=== PATIENT | female | born 1950 | race Caucasian/White ===

== ENCOUNTER 2016-05-28 18:15 | Emergency (ER) | payer BC ==
[2016-05-28 18:41] VITALS: PULSE 68; RESP 16; TEMP 98.4
[2016-05-28 19:56] LABS: % IMMATURE GRANULYOCYTES 0.3 % (0.0-1.1); ABSOLUTE IMMATURE GRANULOCYTES 0.02 10^3/uL (0.00-0.10); ADD DIFF? NO; ADD MORPH? NO; ADD SCAN? NO; ATYPICAL LYMPHOCYTE FLAG 0 (0-99); FRAGMENT RBC FLAG 0 (0-99); HEMATOCRIT 43.7 % (38.0-47.0); HEMOGLOBIN 13.7 g/dL (12.6-16.3); LEFT SHIFT FLG 0 (0-99); LIPEMIA HEMOLYSIS FLAG 80 (0-99); MEAN CELL HEMOGLOBIN 28.3 pg (27.9-34.1); MEAN CELL HEMOGLOBIN CONCENTR. 31.4 g/dL (32.4-36.7); MEAN CELL VOLUME 90.3 fL (81.5-99.8); MEAN PLATELET VOLUME 11.3 fL (8.7-11.7); PLATELET CLUMPS FLAG 0 (0-99); PLATELET COUNT 184 10^3/uL (150-400); RED BLOOD CELL COUNT 4.84 10^6/uL (4.18-5.33); RED CELL DISTRIBUTION WIDTH 13.2 % (11.5-15.2)
[2016-05-28 20:23] LABS: BILIRUBIN,TOTAL 0.3 mg/dL (0.1-1.4); CALCIUM 9.1 mg/dL (8.5-10.4); POTASSIUM 4.3 mEq/L (3.5-5.2); TOTAL PROTEIN 7.5 g/dL (6.3-8.2)
--- NOTE | 2016-05-28 20:51 | UCPHY ---
H & P Time Seen by Provider: 05/28/16 18:34 Patient Type: Established Smoking Status: Never smoked Constitutional: Initial Vital Signs Temperature (C) 36.9 C 05/28/16 18:37 Heart Rate 68 05/28/16 18:37 Respiratory Rate 16 05/28/16 18:37 Blood Pressure 139/80 H 05/28/16 18:37 O2 Sat (%) 95 05/28/16 18:37 O2 Delivery Mode Room Air Allergies/Adverse Reactions: naproxen Allergy (Severe, Verified 05/28/16 18:34) erythromycin base [Erythromycin Base] Allergy (Verified 05/28/16 18:34) Home Medications: Medication Instructions Recorded Omeprazole [Prilosec] 40 mg PO DAILY PRN 01/01/15 Apixaban [Eliquis] 5 mg PO BID #0 tab 09/09/15 Bisoprol/Hydrochlorothiazide [Ziac 1 each PO DAILY #0 tablet 09/09/15 5-6.25 mg Tablet] Medical Decision Making - Data Points Laboratory Results: Laboratory Results 05/28/16 19:53 05/28/16 19:53 05/28/16 05/28/16 19:53 19:53 WBC 7.68 10^3/uL 10^3/uL (3.80-9.50) RBC 4.84 10^6/uL 10^6/uL (4.18-5.33) Hgb 13.7 g/dL g/dL (12.6-16.3) Hct 43.7 % % (38.0-47.0) MCV 90.3 fL fL (81.5-99.8) MCH 28.3 pg pg (27.9-34.1) MCHC 31.4 g/dL L g/dL (32.4-36.7) RDW 13.2 % % (11.5-15.2) Plt Count 184 10^3/uL 10^3/uL (150-400) MPV 11.3 fL fL (8.7-11.7) Neut % (Auto) 59.3 % % (39.3-74.2) Lymph % (Auto) 27.9 % % (15.0-45.0) Tyrrell % (Auto) 10.3 % % (4.5-13.0) Eos % (Auto) 1.4 % % (0.6-7.6) Baso % (Auto) 0.8 % % (0.3-1.7) Nucleat RBC Rel Count 0.0 % % (0.0-0.2) Absolute Neuts (auto) 4.56 10^3/uL 10^3/uL (1.70-6.50) Absolute Lymphs (auto) 2.14 10^3/uL 10^3/uL (1.00-3.00) Absolute Monos (auto) 0.79 10^3/uL 10^3/uL (0.30-0.80) Absolute Eos (auto) 0.11 10^3/uL 10^3/uL (0.03-0.40) Absolute Basos (auto) 0.06 10^3/uL 10^3/uL (0.02-0.10) Absolute Nucleated RBC 0.00 10^3/uL 10^3/uL (0-0.01) Immature Gran % 0.3 % % (0.0-1.1) Immature Gran # 0.02 10^3/uL 10^3/uL (0.00-0.10) Sodium 144 mEq/L mEq/L (134-144) Potassium 4.3 mEq/L mEq/L (3.5-5.2) Chloride 103 mEq/L mEq/L (97-110) Carbon Dioxide 25 mEq/l mEq/l (22-31) Anion Gap 16 mEq/L mEq/L (8-16) BUN 28 mg/dL H mg/dL (7-23) Creatinine 1.0 mg/dL mg/dL (0.6-1.0) Estimated GFR 56 Glucose 98 mg/dL mg/dL (70-100) Calcium 9.1 mg/dL mg/dL (8.5-10.4) Total Bilirubin 0.3 mg/dL mg/dL (0.1-1.4) AST 18 IU/L IU/L (14-46) ALT 26 IU/L IU/L (9-52) Alkaline Phosphatase 75 IU/L IU/L (38-126) Total Protein 7.5 g/dL g/dL (6.3-8.2) Albumin 4.0 g/dL g/dL (3.5-5.0) Lipase 102.0 IU/L IU/L (23-300) Departure - Departure Disposition: Home, Routine, Self-Care Clinical Impression: Right upper quadrant abdominal pain Condition: Good Instructions: Abdominal Pain (ED) Referrals: Osiel Jeffries DO [Primary Care Provider] - As per Instructions - PQRS PQRS Measurement: na
[2016-05-28 21:39] VITALS: BP 129/84; O2SAT 94
== END 2016-05-28 21:00 | disposition home or self-care (01) ==
LOC: CED 18:15
DX: R10.11 Right upper quadrant pain (principal)
CPT/HCPCS: 76705-PO; 80053-PO; 83690-PO; 85025-PO; G0463-PO

== ENCOUNTER → 2016-09-09 | Outpatient (CLI) | payer OTHER, BC | LOC: BHCLAF 09:15 | PROVIDERS: ATTEND Internal Medicine Cardiovascular Disease | DX: I10 Essential (primary) hypertension (principal); Z95.2 Presence of prosthetic heart valve | CPT/HCPCS: 93005-PO ==

== ENCOUNTER 2016-11-24 08:33 | Inpatient (IN) | payer OTHER, BC ==
--- NOTE | 2016-11-20 10:41 | GHP ---
[f rep st] PREOP HISTORY AND PHYSICAL DATE OF ADMISSION: 11/24/2016 DIAGNOSIS: Left knee osteoarthritis. PLANNED SURGERY: Left knee total arthroplasty. HISTORY OF PRESENT ILLNESS: The patient is a female with a long history of left knee osteoarthritis. She has essentially failed conservative treatment, and at this point opts for surgical intervention. PAST MEDICAL HISTORY: History of right knee osteoarthritis, history of aortic valve replacement. SURGICAL HISTORY: Right total hip arthroplasty, left total hip arthroplasty, bunion surgery, tubal ligation, valve replacement, and triple bypass in 2011, in 2016 a second valve replacement and repair of an aortic aneurysm. SOCIAL HISTORY: No tobacco, alcohol, or drug use. PHYSICAL EXAMINATION: GENERAL: She is alert an oriented. NECK: Supple. CARDIAC: Shows regular rate and rhythm. Normal S1, S2. PULMONARY: Shows lungs are clear. ABDOMEN: Shows normoactive bowel sounds. Nontender, nondistended. EXTREMITIES: Examination of the left knee shows skin to be clean , dry, and intact. Range of motion is nearly full. Tender along the medial joint line. There is no evidence of DVT. ASSESSMENT AND PLAN: Patient presents a long history of left knee pain secondary to osteoarthritis. After failing a course of conservative treatment, she opts for surgical intervention. /[id number]/MODL MTDD
[~2016-11-24 08:33] MED LIST: ACETAMINOPHEN 500 MG TAB PO ONE; BACITRACIN 50,000 UNITS/10 ML SYR IRR ONE; BUPIVACAINE/EPI 0.5% 30 ML SDV ONE; CALCIUM CHLORIDE 1 GM/10 ML INJ ONE; LR 1,000 ML IV SCH; POLYMYXIN B SULFATE 500,000 UNIT/10 ML SYR IRR ONE; PREGABALIN 150 MG CAP PO ONE; ROPIVACAINE 0.2% 80 MG, EPINEPHrine 0.2 MG, KETOROLAC TROMETHAMINE 30 MG, morphINE 10 M... IU ONE; THROMBIN (BOVINE) 5,000 UNIT VIAL TP ONE; TRANEXAMIC ACID 3,000 MG in NS 50 ML IRR ONE; TRANEXAMIC ACID 3,000 MG/50 ML BAG IRR ONE; ceFAZolin 2 GM/DEXTROSE 100 ML IV ONE
[2016-11-24] MEDS ORDERED: LIDOCAINE 1% 2 ML INJ ID PRN (08:55)
[2016-11-24] MEDS ORDERED: LR 1,000 ML IV ONE (08:55)
[2016-11-24] MEDS ORDERED: ACETAMINOPHEN 500 MG TAB ONE (09:06)
[2016-11-24] MEDS ORDERED: PREGABALIN 150 MG CAP ONE (09:07)
[2016-11-24] MEDS ORDERED: CEFAZOLIN 2 GM/DEXTROSE/100 ML BAG IV ONE (09:08)
[2016-11-24] MEDS ORDERED: MIDAZOLAM 2 MG/2 ML VIAL IVP ONE (09:34)
--- NOTE | 2016-11-24 09:34 | PDANEPAE ---
ANE History of Present Illness Knee OA with severe pain ANE Past Medical History - Cardiovascular History Hx Hypertension: Yes Hx Arrhythmias: No Hx Chest Pain: No Hx Coronary Artery / Peripheral Vascular Disease: Yes Hx CHF / Valvular Disease: Yes Hx Palpitations: No Cardiovascular History Comment: AORTIC STENOSIS,BICUSPID, AORTIC VALVE STENOSIS. CAD,HEART FAILURE, TORACIC AORTIC ANEURYSM W/OUT RUPTURE. PROSTHETIC HEART VALVE - Pulmonary History Hx COPD: No Hx Asthma/Reactive Airway Disease: No Hx Recent Upper Respiratory Infection: No Hx Oxygen in Use at Home: No Hx Sleep Apnea: No Sleep Apnea Screening Result - Last Documented: Positive Pulmonary History Comment: PE 12/2014 and 04/2015. RESP FAILURE. PULM HTN - Neurologic History Hx Cerebrovascular Accident: Yes Hx Seizures: No Hx Dementia: No Neurologic History Comment: TIA'S August 2013. Small stroke during CABG - Endocrine History Hx Diabetes: No - Renal History Hx Renal Disorders: Yes Renal History Comment: Hx of e-coli infection prior to CABG with Kidney damage - Liver History Hx Hepatic Disorders: No - Neurological & Psychiatric Hx Hx Neurological and Psychiatric Disorders: No - Cancer History Hx Cancer: No - Congenital Disorder History Hx Congenital Disorders: No - GI History Hx Gastrointestinal Disorders: Yes Gastrointestinal History Comment: GERD - Other Health History Other Health History: ARTHRITIS, HX. ANEMIA OSTEOARTHERITIS, OBESITY - Chronic Pain History Chronic Pain: Yes (KNEE PAIN MATHIEU hx of arthritis) - Surgical History Prior Surgeries: FILTER REMOVAL 10/2015. Aortic Valve replacement & CABG x3 2011 with valve redo and Aortic Aneurysm repair 09/04/15. 2007 Bunion. 2001, 2002 Bilat hip replacement. Appendectomy. Tubal ligation ANE Review of Systems Review of Systems: - Exercise capacity METS (RN): 4 METS ANE Patient History - Allergies Allergies/Adverse Reactions: naproxen Allergy (Severe, Verified 05/28/16 18:34) erythromycin base [Erythromycin Base] Allergy (Verified 05/28/16 18:34) - Home Medications Home medications: home medication list seen and reviewed Home Medications: Omeprazole [Prilosec] 40 mg PO DAILY PRN 01/01/15 [Last Taken 11/22/16] Acetaminophen [Tylenol 325mg (*)] 325 mg PO DAILY PRN 11/05/16 [Last Taken 11/21] Bisoprolol Fumarate [Zebeta (*)] 5 mg PO DAILY 11/05/16 [Last Taken 11/24/16 06: 30] Furosemide [Lasix 20 MG (*)] 20 mg PO DAILY PRN 11/05/16 [Last Taken 11/17/16] Multivitamins [Multivitamin (*)] 1 each PO DAILY 11/05/16 [Last Taken 11/10/16] - NPO status NPO Since - Liquids (Date): 11/23/16 NPO Since - Liquids (Time): 23:00 NPO Since - Solids (Date): 11/23/16 NPO Since - Solids (Time): 20:00 - Anes Hx Hx Anesthesia Complications (with details): Difficult intubating - Smoking Hx Smoking Status: Never smoked - Family Anes Hx Family Hx Anesthesia Complications: NO ANE Labs/Vital Signs - Vital Signs Blood Pressure: 153/95 Heart Rate: 65 Respiratory Rate: 16 O2 Sat (%): 96 Height: 157.48 cm Weight: 94.347 kg ANE Physical Exam - Airway Neck exam: decreased ROM, increased neck circumference Mallampati Score: Class 3 Mouth exam: normal dental/mouth exam - Pulmonary Pulmonary: no respiratory distress - Cardiovascular Cardiovascular: regular rate and rhythym - ASA Status ASA Status: III ANE Anesthesia Plan Anesthesia Plan: MAC, spinal Regional Anesthesia: adductor canal FNB
[2016-11-24] MEDS ORDERED: PROPOFOL/EMULSION 500 MG/50 ML BOTTLE IV ONE (09:45)
[2016-11-24] MEDS ORDERED: LIDOCAINE 2% 5 ML SDV ONE (10:26)
[2016-11-24] MEDS ORDERED: PHENYLEPHRINE HCL 100 MCG/ML SYR ONE ×2 (10:43→11:33)
[2016-11-24] MEDS ORDERED: ONDANSETRON 4 MG/2 ML VIAL ONE ×2 (10:44→13:08)
[2016-11-24] MEDS ORDERED: PROPOFOL 200 MG/20 ML VIAL ONE (11:43)
[2016-11-24] MEDS ORDERED: ROPIVACAINE HCL 150 MG/30 ML INJ ONE (11:50)
[2016-11-24] MEDS ORDERED: fentaNYL 100 MCG/2 ML INJ IVP PRN (11:54)
[2016-11-24] MEDS ORDERED: HYDROmorphONE/DILAUDID 1 MG/ML INJ IVP PRN (11:54)
[2016-11-24] MEDS ORDERED: NALOXONE HCL 0.4 MG/ML INJ IVP PRN (11:54)
[2016-11-24] MEDS ORDERED: ONDANSETRON 4 MG/2 ML VIAL IVP PRN ×2 (11:54→18:53)
[2016-11-24] MEDS ORDERED: ONDANSETRON DISINTEGRATING 4 MG TAB PO PRN (12:07)
[2016-11-24] MEDS ORDERED: METOCLOPRAMIDE 10 MG/2 ML VIAL IVP PRN (12:07)
[2016-11-24] MEDS ORDERED: LACTULOSE 20 GM/30 ML UDCUP PO PRN (12:07)
[2016-11-24] MEDS ORDERED: TEMAZEPAM 15 MG CAP PO PRN (12:07)
[2016-11-24] MEDS ORDERED: diphenhydrAMINE 25 MG CAP PO PRN (12:07)
[2016-11-24] MEDS ORDERED: DIPHENOXYLATE/ATROPINE LOMOTIL 1 TAB PO PRN (12:07)
[2016-11-24] MEDS ORDERED: TAPENTADOL HCL 50 MG TAB PO PRN (12:07)
[2016-11-24] MEDS ORDERED: MAGNESIUM HYDROXIDE 30 ML UDCUP PO PRN (12:07)
[2016-11-24] MEDS ORDERED: PROMETHAZINE HCL 25 MG SUPPR PR PRN (12:07)
[2016-11-24] MEDS ORDERED: BISACODYL 10 MG SUPP PR PRN (12:07)
[2016-11-24] MEDS ORDERED: POLYETHYLENE GLYCOL 3350 17 GM PKT PO PRN (12:07)
--- NOTE | 2016-11-24 12:07 | POSTOPPROG ---
Post Op Note Date of Operation: 11/24/16 Surgeon: Karine Nicholas Topology Professor: sapna Anesthesiologist: antony Anesthesia: Epidural, IV Sedation Pre-op Diagnosis: l knee oa Procedure: l tkr Inf/Abcess present in the surg proc area at time of surgery?: No Depth: Deep Incisional (Fascial) EBL: 100-500
[2016-11-24] MEDS ORDERED: FUROSEMIDE 20 MG TAB PO PRN (12:10)
[2016-11-24] MEDS ORDERED: NON-FORMULARY NEW DRUG (Omeprazole [Prilosec] 40 MG) PO PRN (12:10)
[2016-11-24] MEDS ORDERED: PANTOPRAZOLE SODIUM 40 MG TAB PO PRN (12:16)
--- NOTE | 2016-11-24 12:31 | POSTANESTH ---
Post Anesthetic Evaluation Cardiovascular Status: Normal, Stable Respiratory Status: Normal, Stable Level of Consciousness/Mental Status: Can Participate in Eval Pain Control: Adequate, Prn Tx Ordered Nausea/Vomiting Control: Adequate, Prn Tx Ordered (Adductor cannal block done in recovery.)
[2016-11-24] MEDS ORDERED: PROMETHAZINE HCL 25 MG/ML INJ ONE (13:51)
[2016-11-24] MEDS: PROMETHAZINE HCL 25 MG/ML INJ IVP PRN ×2 (13:53→14:42)
[2016-11-24] MEDS: LR 1,000 ML IV SCH ×2 (14:57→22:11)
--- NOTE | 2016-11-24 15:04 | GOP ---
[f rep st] OPERATIVE REPORT DATE OF OPERATION: 11/24/2016 SURGEON: Karine Nicholas MD PROFESSOR OF FINE ART: Ghulam Ramirez, CSFA, LSA, whose presence was medically necessary. ANESTHESIA: By epidural nerve block plus sedation. PREOPERATIVE DIAGNOSIS: Left knee osteoarthritis. POSTOPERATIVE DIAGNOSIS: Left knee osteoarthritis. PROCEDURE PERFORMED: Left total knee arthroplasty. FINDINGS: INDICATIONS: This is a 66-year-old female with a long history of left knee pain, worsening with use and with time, with increasing valgus deformity with time. X-ray exam reveals severe osteoarthritic changes to the lateral patellofemoral compartment. She wishes to have surgery in order to resolve th e problem. DESCRIPTION OF PROCEDURE: The patient was brought to the operating room after the left side had been identified as the correct side by the patient, nurse and physician once in the operating room. She was given an epidural nerve block. She was then given IV sedation and placed in the supine position. A tourniquet was placed around the upper portion of the left thigh, and the left lower extremity st erilely prepped and draped in the usual fashion using GSI solution. Once prepped and draped, the doll b was exsanguinated and the tourniquet inflated to 250 mmHg. A linear incision was made on the anterior portion of the knee. With sharp dissection, carried down through the skin and subcutaneous layers, identifying the extensor mechanism below. Bleeding was con trolled using electrocautery. A medial parapatellar incision was made through the extensor mechanism with the patella brought to the side, but not everted. The ACL as well as the medial and lateral me niscus were removed. She was noted to have severe changes to the patella and to the lateral compartm ent. There was an abundant amount of osteophytic formation throughout. A drill hole was made 1 cm anterior to the intercondylar notch with an intramedullary guide placed wi thin the femur. The femur was set in 5 degrees of valgus and set to remove 10 mm of bone from the di stal end. Once the cutting blocks were put in place, an oscillating saw was used to remove the dista l end of the femur, leaving a flush cut. The knee was then brought to maximal flexion with cartilage taken off the posterior femoral condyles and a sizing guide put into place. Once it was pinned into place, it was noted a size 3 seemed to fit best. Therefore, the drill holes were removed and a size 3 four-in-1 cutting block was put into place. Anterior, posterior and chamfer cuts were made. A tr ial femoral component was put into place. The knee was able to achieve full extension, suggesting an adequate amount of bone had been removed. The trial was then removed. The knee was brought to maximal flexion with the tibia subluxed anterior ly and an external tibial guide was put into place, set in neutral varus valgus and mild posterior sl ope, set to remove 2 mm of bone from the low side of the tibia which was the lateral side and was pin veronica into place. A drop deena was used to ensure proper positioning of the cutting block. Once this wa s ensured, an oscillating saw was used to remove the proximal portion of the tibia until achieving a level cut. Trial femur and tibia and trial liner were put into place. The knee was easily able to a chieve full extension. Therefore, the pins associated with the cutting block were removed. The knee was brought back to maximal flexion with the tibia subluxed anteriorly. A sizing guide was placed o n the proximal tibia and a size 3 seemed to fit best. It was pinned into place. The keel punch guid e was put on the tibial plate and a keel punch passed through the guide into the proximal femur. Onc e removed, the trial plate was removed and the knee brought to full extension. The patella was then everted. The abundant amount of osteophytic spurs were removed from around the patella. The patella was measured to be 20 mm in thickness. Therefore, an oscillating saw was used to remove the posteri or portion of the patella, leaving 15 mm of bone. Multiple sizing guides were placed on the cut surf ward of bone, noting that a 29 mm button seemed to fit best. Therefore, lug holes were drilled for a 29 mm patellar button. All cut surfaces of bone were then thoroughly irrigated with antibiotic solut ion using pulsatile lavage while cement was being mixed. Once cement was doughy, it was placed on th e proximal portion of the tibia with a size 3 triathlon base plate put into place, with excess cement removed using [place] elevators. Cement was then placed on the posterior skids of the femoral compone nt, with cement placed on the distal and anterior portions of the bone. A Triathlon cruciate retaini ng size 3 left femoral component was put into place with excess cement removed. A trial liner was pl aced in the tibial tray. The knee was brought to full extension in order to pressurize cement. Ceme nt was placed on the cut surface of the patella and a 29 mm asymmetric patella was put into place and clamped into place. Excess cement was removed using a [place] elevator. Once cement had dried, any e xcess cement was removed using a combination of rongeur and osteotome. Once completed, multiple tria ls were placed on the tibial tray, noting a 13 mm liner seemed to fit best. Therefore, a size 13 mm polyethylene liner was placed on the tibial tray. The knee was brought to 30 degrees of flexion. The tourniquet was deflated at 51 minutes. Bleeding was controlled using electrocautery. A joint co cktail was injected in the posterior capsule along the periosteum of the femur and the tibia. The ex tensor mechanism was closed using 0 Vicryl suture in a [id number] type stitch with tranexamic ac id placed intra-articularly as well as PRP. Zero Vicryl and 2-0 Vicryl suture were used to close the subcutaneous layers with PRP injected superficial to the extensor mechanism, and then a 3-0 V-Loc grace ture in a running subcuticular stitch was used to close the skin, with 30 mL of Marcaine infused arou nd the actual incision itself. The incision was then dressed with Steri-Strips, Xeroform, 4x4, and K erlix. The leg was completely undraped in the operating room, tourniquet was removed from the thigh and an Ward wrap placed around the knee. The patient was then transferred onto a stretcher, and sent to the recovery room in a good condition. TOURNIQUET TIME: 51 minutes. /[id number]/MODL
[2016-11-24] MEDS: CYCLOBENZAPRINE 10 MG TAB PO PRN (16:36)
[2016-11-24] MEDS: traMADol 50 MG TAB PO SCH (16:37)
[2016-11-24] MEDS: oxyCODONE IR 5 MG TAB PO PRN ×2 (17:34→20:30)
[2016-11-24] MEDS: ACETAMINOPHEN 325 MG TAB PO SCH (17:35)
[2016-11-24] MEDS: ceFAZolin 2 GM/DEXTROSE 100 ML IV SCH (17:35)
[2016-11-24] MEDS ORDERED: KETOROLAC 30 MG/1 ML SDV IVP SCH (18:00)
[2016-11-24] MEDS: APIXABAN 5 MG TAB PO SCH (20:29)
[2016-11-24] MEDS: FAMOTIDINE 20 MG TAB PO SCH (20:30)
[2016-11-24] MEDS: SENNOSIDES/DOCUSATE SODIUM TAB PO SCH (20:31)
[2016-11-25] MEDS: ACETAMINOPHEN 325 MG TAB PO SCH ×5 (00:05→17:50)
[2016-11-25] MEDS: traMADol 50 MG TAB PO SCH ×4 (00:06→17:52)
[2016-11-25] MEDS: ceFAZolin 2 GM/DEXTROSE 100 ML IV SCH (02:09)
[2016-11-25 05:26] LABS: HEMATOCRIT 40.4 % (38.0-47.0); HEMOGLOBIN 12.7 g/dL (12.6-16.3)
[2016-11-25] MEDS: oxyCODONE IR 5 MG TAB PO PRN ×4 (05:39→21:44)
[2016-11-25] MEDS: SENNOSIDES/DOCUSATE SODIUM TAB PO SCH ×2 (08:33→21:42)
[2016-11-25] MEDS: FAMOTIDINE 20 MG TAB PO SCH ×2 (08:33→21:43)
[2016-11-25] MEDS: APIXABAN 5 MG TAB PO SCH ×2 (08:33→21:45)
[2016-11-25] MEDS: BISOPROLOL FUMARATE 5 MG TAB PO SCH (08:34)
[2016-11-25] MEDS: CYCLOBENZAPRINE 10 MG TAB PO PRN ×2 (12:05→21:43)
--- NOTE | 2016-11-25 12:16 | ASMTCMCOM ---
CM Note CM Note Notes: PT wants to d/c to [facility], referral sent and [facility] reports they can accept pt for d/c when medically stable. Date Signed: 11/25/2016 12:16 PM Electronically Signed By:LAZ Palomino
--- NOTE | 2016-11-25 14:24 | SOAPPROG ---
[facility] Progress Note Assessment/Plan: Assessment: Plan: as planned d/c home tomoorow 11/25/16 14:23 Subjective: Doing well pain controlled Objective: Vital Signs Temp Pulse Resp BP Pulse Ox 37 C 64 18 106/55 L 97 11/25/16 12:36 11/25/16 12:36 11/25/16 12:36 11/25/16 12:36 11/25/16 12:36 Laboratory Results 11/25/16 04:51 11/24/16 11/25/16 11/26/16 05:59 05:59 05:59 Intake Total 3175 Output Total 1625 Balance 1550 Dressing cdi, calf nt, neg dvt, nvi - Time Spent With Patient Time Spent With Patient: 15 - Pending Discharge Pending Discharge Within 24 Hours: No Pending Discharge Within 48 Hours: Yes Pending Discharge Date: 11/27/16 Pending Discharge Time: 11:00 ICD10 Worksheet Patient Problems: Problems Problem Status Onset Acute blood loss anemia Acute S/P aortic valve replacement with stentless valve Acute S/P ascending aortic replacement Acute Ascending aorta enlargement Chronic CAD (coronary artery disease), [place] coronary artery Chronic Chronic anticoagulation Chronic History of pulmonary embolism Chronic Hx of coronary artery bypass surgery 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
[2016-11-26] MEDS: traMADol 50 MG TAB PO SCH ×2 (00:35→13:05)
[2016-11-26] MEDS: oxyCODONE IR 5 MG TAB PO PRN ×4 (00:38→17:16)
[2016-11-26] MEDS: ACETAMINOPHEN 325 MG TAB PO SCH ×4 (00:39→17:16)
[2016-11-26 05:38] LABS: HEMATOCRIT 35.5 % (38.0-47.0); HEMOGLOBIN 11.1 g/dL (12.6-16.3)
[2016-11-26] MEDS: FAMOTIDINE 20 MG TAB PO SCH (09:49)
[2016-11-26] MEDS: SENNOSIDES/DOCUSATE SODIUM TAB PO SCH (09:49)
[2016-11-26] MEDS: APIXABAN 5 MG TAB PO SCH (09:50)
[2016-11-26] MEDS: BISOPROLOL FUMARATE 5 MG TAB PO SCH (09:50)
--- NOTE | 2016-11-26 12:21 | SOAPPROG ---
[facility] Progress Note Assessment/Plan: Assessment: Plan: d/c to rehab 11/25/16 14:23 11/26/16 12:20 Subjective: no issues Objective: Vital Signs Temp Pulse Resp BP Pulse Ox 37.0 C 73 16 115/73 97 11/26/16 08:00 11/26/16 08:00 11/26/16 08:00 11/26/16 08:00 11/26/16 08:00 Laboratory Results 11/26/16 04:57 11/25/16 11/26/16 11/27/16 05:59 05:59 05:59 Intake Total 3175 1999 Output Total 1625 850 Balance 1550 1150 cdi, nvi, calf nt - Pending Discharge Pending Discharge Within 24 Hours: Yes Pending Discharge Within 48 Hours: No Pending Discharge Date: 11/27/16 Pending Discharge Time: 11:00 ICD10 Worksheet Patient Problems: Problems Problem Status Onset chronic disease [facility]/transitional care Acute Acute blood loss anemia Acute S/P aortic valve replacement with stentless valve Acute S/P ascending aortic replacement Acute Ascending aorta enlargement Chronic CAD (coronary artery disease), [place] coronary artery Chronic Chronic anticoagulation Chronic History of pulmonary embolism Chronic Hx of coronary artery bypass surgery 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
--- NOTE | 2016-11-26 12:22 | PDIAF ---
- Diagnosis Code Status: Full Code - Medication Management Discharge Medications: Medications to Continue on Transfer Omeprazole [Prilosec] 40 mg PO DAILY PRN 01/01/15 [Last Taken 11/22/16] Apixaban [Eliquis] 5 mg PO BID #0 tab 09/09/15 [Last Taken 11/22/16 06:00] Acetaminophen [Tylenol 325mg (*)] 325 mg PO DAILY PRN 11/05/16 [Last Taken 11/21] Bisoprolol Fumarate [Zebeta (*)] 5 mg PO DAILY 11/05/16 [Last Taken 11/24/16 06: 30] Furosemide [Lasix 20 MG (*)] 20 mg PO DAILY PRN 11/05/16 [Last Taken 11/17/16] Multivitamins [Multivitamin (*)] 1 each PO DAILY 11/05/16 [Last Taken 11/10/16] oxyCODONE IR [Oxycodone Ir (*)] 5 - 10 mg PO Q3HRS PRN tab 11/26/16 [Last Taken Unknown] Discharge Medications: Refer to the Discharge Home Medication list for PRN reason. PICC Care - Routine: N/A - Orders Diet Recommendation: no restrictions on diet Diet Texture: Regular Texture Diet Gianni Stockings Discontinue Date: 12/06/16 Wound Care Instructions: keep dressing on, may shower over dressing Activity/Weight Bearing Restrictions: wbat - Follow Up Care Current Providers and Referrals: Osiel Jeffries DO [Primary Care Provider] -
[2016-11-26 16:15] VITALS: BP 123/66; PULSE 89; RESP 14; TEMP 99.8; O2SAT 94
--- NOTE | 2016-11-26 16:26 | ASMTCMCOM ---
CM Note CM Note Notes: Pt medically stable for d/c to [facility]. Orders sent. Date Signed: 11/26/2016 04:26 PM Electronically Signed By:LAZ Palomino
--- NOTE | 2016-11-27 15:20 | ASDISCHSUM ---
Discharge Information Plan Status:SNF Medically Cleared to Leave: Discharge Date:11/26/2016 07:31 PM CM D/C Disposition:Halfway Facility ADT D/C Disposition:Halfway Facility Projected Discharge Date:11/25/2016 11:00 AM Transportation at D/C:Wheelchair Van Discharge Delay Reason: Follow-Up Date:11/25/2016 11:00 AM Discharge Slot: Final Diagnosis: Placement Information Referral Type:*Fdc/SNF Referral ID:[id number] Provider Name:Rajani Morrison Address 1[address] Phone Number: Address 2: Fax Number: City:[place] Selection Factors: State:[place] Patient Contact Information Contact Name:ALBA Relationship:Daughter Address: Work Phone: City: [facility] Phone: [facility] Code: Email: Financial Information Financial Class: Primary Plan Desc:MEDICARE INPATIENT Primary Plan Number:[id number] Secondary Plan Desc:[facility] Secondary Plan Number:[id number] Assessment Information [facility] CM Progress Note CM Note CM Note Notes: PT wants to d/c to [facility], referral sent and [facility] reports they can accept pt for d/c when medically stable. Date Signed: 11/25/2016 12:16 PM Electronically Signed By:LAZ Palomino [facility] CM Progress Note CM Note CM Note Notes: Pt medically stable for d/c to [facility]. Orders sent. Date Signed: 11/26/2016 04:26 PM Electronically Signed By:LAZ Palomino Intervention Information Intervention Type:*IM-Signed Date of Service:11/26/2016 02:25 PM Patient Type:Inpatient Staff Member:Desi Castro Hours: Discipline: Severity: Comment:
== END 2016-11-26 19:31 | DRG 470 ==
LOC: F3N 08:33
PROVIDERS: ADMIT Orthopaedic Surgery; ATTEND Orthopaedic Surgery
PROC: 0SRD0J9 Replacement of Left Knee Joint with Synthetic Substitute, Cemented, Open Approach (ICD-10-PCS; principal; 2016-11-24 10:00)
DX: M17.32 Unilateral post-traumatic osteoarthritis, left knee (principal); Z95.1 Presence of aortocoronary bypass graft; Z95.2 Presence of prosthetic heart valve; Z96.643 Presence of artificial hip joint, bilateral
CPT/HCPCS: 97110-GP; 97116-GP; 97161-GP; 97166-GO; 97530-GP; 97535-GO; C1713; G8978-GP-CL; G8979-GP-CI; G8987-GO-CK; G8988-GO-CI; J0171; J0690; J1885; J2250; J2370; J2405; J2550; J2704; J2795

== ENCOUNTER 2017-02-25 16:13 | Emergency (ER) | payer OTHER, BC ==
[2017-02-25 16:30] VITALS: RESP 16; TEMP 98.4
[2017-02-25] MEDS ORDERED: IPRATROPIUM/ALBUTEROL 3 ML DEYVIAL IH ONE (17:00)
--- NOTE | 2017-02-25 17:17 | EDPHY ---
H & P Stated Complaint: cough -productive white to yellow since Sun.,denies fever and sob Time Seen by Provider: 02/25/17 16:18 HPI/ROS: 66-year-old female presents complaining of cough and cold symptoms for several days however worse over the last 1 day. No nausea vomiting diarrhea. Positive chills, no fever. No leg pain or leg swelling. Patient with knee replacement in October 2016, saw her orthopedic doctor today and has been doing well. Patient has had several days short trips to [facility] over the last 1 month and been exposed to cold sent influenza on a regular basis. Patient takes Eliquis. Review of systems As per HPI General no fever no chills no weakness HEENT no eye pain no eye discharge. No eye redness, no sore throat Respiratory positive cough , positive URI symptoms, no shortness of breath Cardiac no chest pain, no peripheral edema GI no abdominal pain, no diarrhea, no constipation, no nausea, no vomiting no flank pain, no hematuria, no dysuria Musculoskeletal no myalgias, no joint pain Heme no easy bruising, no easy bleeding Endo no polyuria, no polydipsia Skin no rashes, no pruritus Neuro no syncope, no dizziness, no headaches Psych is no suicidal ideation, no homicidal ideation Source: Patient - Personal History Current Tetanus/Diphtheria Vaccine: Yes Current Tetanus Diphtheria and Acellular Pertussis (TDAP): Yes Tetanus Vaccine Date: 07/2011 - Medical/Surgical History Hx Asthma: No Hx Chronic Respiratory Disease: No Hx Diabetes: No Hx Cardiac Disease: Yes Hx Renal Disease: No Hx Cirrhosis: No Hx Alcoholism: No Hx HIV/AIDS: No Hx Splenectomy or Spleen Trauma: No Other PMH: open heart valve replacement 2011, complicated with 3 vessel bypass, bilateral hip replacements, foot surgery, TIA 09/11;HTN;GERD; obesity, PEs in 2014; Thoracic aortic aneurysm w/out rupture will be repaired at time of AVR; arthritis; appendectomy; foot surgery; tubal ligation/10/2016-left knee surg. - Family History Significant Family History: COPD - Social History Smoking Status: Never smoked Alcohol Use: None Drug Use: None - Physical Exam Exam: 66-year-old female alert and oriented no acute distress nontoxic appearance, afebrile Harsh cough, runny nose Patient has a whistling sound with each breath which is chronic for her status post vocal cord injury during a prior surgery HEENT atraumatic normocephalic, extraocular muscles intact, anicteric Oropharynx negative for erythema negative exudate, tolerating her own secretions Neck supple no meningismus Lungs clear to auscultation bilaterally Heart regular rate and rhythm without murmur rub or gallop Abdomen nondistended normoactive bowel sounds soft nontender Back no CVA tenderness, no step-offs, no spinal tenderness Extremities no cyanosis clubbing , trace edema present bilaterally Neuro alert and oriented, no focal deficits Constitutional: Initial Vital Signs Temperature (C) 36.9 C 02/25/17 16:21 Heart Rate 70 02/25/17 16:21 Respiratory Rate 16 02/25/17 16:21 Blood Pressure 124/75 H 02/25/17 16:21 O2 Sat (%) 93 02/25/17 16:21 O2 Delivery Mode Room Air Allergies/Adverse Reactions: naproxen Allergy (Severe, Verified 11/24/16 16:12) THROAT CLOSES, SWELLING erythromycin base [Erythromycin Base] Allergy (Verified 05/28/16 18:34) Home Medications: Medication Instructions Recorded Omeprazole [Prilosec] 40 mg PO DAILY PRN 01/01/15 Apixaban [Eliquis] 5 mg PO BID #0 tab 09/09/15 Acetaminophen [Tylenol 325mg (*)] 325 mg PO DAILY PRN 11/05/16 Bisoprolol Fumarate [Zebeta (*)] 5 mg PO DAILY 11/05/16 Furosemide [Lasix 20 MG (*)] 20 mg PO DAILY PRN 11/05/16 Multivitamins [Multivitamin (*)] 1 each PO DAILY 11/05/16 levOFLOXACIN [levAQUIN (*)] 750 mg PO DAILY 5 Days #5 tab 02/25/17 Medical Decision Making - Diagnostics Imaging Results: Imaging Impressions Chest X-Ray 02/25/17 16:32 Impression: 1. Sequela of prior CABG with persistent cardiomegaly, but no evidence of congestive heart failure. 2. Mild perihilar bronchitis with some left medial basilar diskoid subsegmental atelectasis versus minimal infiltrate and/or parenchymal fibrosis. ED Course/Re-evaluation: Patient seen and evaluated for cough and cold symptoms. Chest x-ray Consistent with bronchitis no evidence of CHF cannot rule out a very small early infiltrate versus atelectasis Influenza swab-negative Impression Bronchitis Since we cannot rule out a small early infiltrate will treat with antibiotics Plan Levaquin 750 mg p.o. today Prescription for Levaquin 750 p.o. x5 days Follow-up with primary care physician Differential Diagnosis: Differential diagnosis considered but not limited to: URI, bronchitis, pneumonia, congestive heart failure - Data Points Laboratory Results: 02/25/17 17:00 Influenza A,B Rapid NEGATIVE FOR FLU (NEGATIVE) Medications Given: Discontinued Medications Albuterol Sulfate (Proventil Inh Prepack) 1 mdi TAKEHOME EDNOW ONE Stop: 02/25/17 17:44 Last Admin: 02/25/17 17:54 Dose: 1 mdi Albuterol/Ipratropium (Duoneb) 3 ml IH EDNOW ONE Stop: 02/25/17 17:01 Last Admin: 02/25/17 17:11 Dose: 3 ml Levofloxacin (Levaquin) 750 mg PO EDNOW ONE PRN Reason: Protocol Stop: 02/25/17 17:12 Last Admin: 02/25/17 17:18 Dose: 750 mg Departure - Departure Disposition: Home, Routine, Self-Care Clinical Impression: Acute bronchitis Condition: Good Instructions: Albuterol (By breathing), Levofloxacin (By mouth), Acute Bronchitis (ED) Additional Instructions: Follow-up with your primary care physician in 3-5 days Referrals: NONE *PRIMARY CARE P,. [Primary Care Provider] - As per Instructions Prescriptions: levOFLOXACIN [levAQUIN (*)] 750 mg PO DAILY 5 Days #5 tab
[2017-02-25] MEDS ORDERED: ALBUTEROL INH PREPACK MDI TAKEHOME ONE (17:43)
[2017-02-25 17:57] VITALS: BP 106/50; PULSE 80; O2SAT 95
== END 2017-02-25 17:56 | disposition home or self-care (01) ==
LOC: CED 16:13
DX: J20.9 Acute bronchitis, unspecified (principal); Z79.01 Long term (current) use of anticoagulants
CPT/HCPCS: 71020-PO; 87400-PO

== ENCOUNTER → 2017-03-19 | Outpatient (CLI) | payer OTHER, BC | LOC: BHCLAF 14:00 | PROVIDERS: ATTEND Internal Medicine Cardiovascular Disease | DX: Z95.2 Presence of prosthetic heart valve (principal) | CPT/HCPCS: 93306-PO ==

== ENCOUNTER 2017-08-10 05:30 | Inpatient (IN) | payer OTHER, BC ==
--- NOTE | 2017-08-02 21:30 | GHP ---
[f rep st] HISTORY AND PHYSICAL CURRENT COMPLAINT: Right knee pain. HISTORY OF PRESENT ILLNESS: Miss Reyes is a 67-year-old female with a long history of right k nee pain and deformity worsening with use and with time. She wishes to have surgery in order to reso lve the problems. ALLERGIES: Include Aleve and erythromycin. CURRENT MEDICATIONS: Include bisoprolol, Eliquis, omeprazole. PRIOR MEDICAL PROBLEMS: Include anemia, arthritis, blood clots, heart disease, reflux, and stroke. PRIOR SURGERIES: Include an appendectomy, tubal ligation, bilateral hip replacements, hammertoe, CA BG, and valve replacement, with a left total knee. SOCIAL HISTORY: She has never been a smoker. She is a social drinker. PHYSICAL EXAMINATION: HEENT: The patient's pupils are equal, round, and reactive to light. CHEST: Clear to auscultation. HEART: Regular rate and rhythm. ABDOMEN: Soft and nontender. EXTREMITIES : Right knee reveals a valgus deformity with osteophytic spurring noted laterally and a correctable valgus deformity. X-ray exam reveals [id number] osteoarthritic changes. She wishes to have the surgery in order to r esolve them. ASSESSMENT AND PLAN: Patient is status post right knee osteoarthritis. Plan is to take her to the o perating room to undergo a right total knee arthroplasty. /[id number]/MODL
[2017-08-10] MEDS: ceFAZolin 2 GM/DEXTROSE 100 ML IV SCH
[2017-08-10] MEDS ORDERED: ceFAZolin 2 GM/DEXTROSE 100 ML IV ONE (06:00)
[2017-08-10] MEDS ORDERED: TRANEXAMIC ACID 3,000 MG in NS (SYRINGE) 50 ML IRR ONE (06:00)
[2017-08-10] MEDS ORDERED: ACETAMINOPHEN 500 MG TAB PO ONE (06:00)
[2017-08-10] MEDS ORDERED: ceFAZolin 2 GM/SWFI 2 GM/20 ML SYR IVP ONE (06:00)
[2017-08-10] MEDS ORDERED: ROPIVACAINE 0.2% 80 MG, EPINEPHrine 0.2 MG, morphINE 10 MG in SYRINGE 0 ML IU ONE (06:00)
[2017-08-10] MEDS ORDERED: PREGABALIN 150 MG CAP PO ONE (06:00)
[2017-08-10] MEDS ORDERED: MIDAZOLAM 2 MG/2 ML VIAL ONE (07:02)
[2017-08-10] MEDS ORDERED: PHENYLEPHRINE HCL 100 MCG/ML SYR ONE (07:12)
[2017-08-10] MEDS ORDERED: PROPOFOL/EMULSION 500 MG/50 ML BOTTLE IV ONE (07:12)
[2017-08-10] MEDS ORDERED: THROMBIN (BOVINE) 5,000 UNIT VIAL TP ONE (07:56)
[2017-08-10] MEDS ORDERED: CALCIUM CHLORIDE 1 GM/10 ML INJ ONE (07:56)
[2017-08-10] MEDS ORDERED: TEMAZEPAM 15 MG CAP PO PRN (08:00)
[2017-08-10] MEDS ORDERED: LR 1,000 ML IV SCH (08:00)
[2017-08-10] MEDS ORDERED: POLYETHYLENE GLYCOL 3350 17 GM PKT PO PRN (08:00)
[2017-08-10] MEDS ORDERED: MAGNESIUM HYDROXIDE 30 ML UDCUP PO PRN (08:00)
[2017-08-10] MEDS ORDERED: ONDANSETRON DISINTEGRATING 4 MG TAB PO PRN (08:00)
[2017-08-10] MEDS ORDERED: METOCLOPRAMIDE 10 MG/2 ML VIAL IVP PRN (08:00)
[2017-08-10] MEDS ORDERED: LACTULOSE 20 GM/30 ML UDCUP PO PRN (08:00)
[2017-08-10] MEDS ORDERED: diphenhydrAMINE 25 MG CAP PO PRN (08:00)
[2017-08-10] MEDS ORDERED: PROMETHAZINE HCL 25 MG/ML INJ IVP PRN (08:00)
[2017-08-10] MEDS ORDERED: ONDANSETRON 4 MG/2 ML VIAL IVP PRN (08:00)
[2017-08-10] MEDS ORDERED: TAPENTADOL HCL 50 MG TAB PO PRN (08:00)
[2017-08-10] MEDS ORDERED: BISACODYL 10 MG SUPP PR PRN (08:00)
[2017-08-10] MEDS ORDERED: DIPHENOXYLATE/ATROPINE LOMOTIL 1 TAB PO PRN (08:00)
[2017-08-10] MEDS ORDERED: PROMETHAZINE HCL 25 MG SUPPR PR PRN (08:00)
[2017-08-10] MEDS ORDERED: ACETAMINOPHEN 325 MG TAB ONE ×2 (12:29→23:39)
[2017-08-10] MEDS ORDERED: CYCLOBENZAPRINE 10 MG TAB ONE ×2 (12:29→20:39)
[2017-08-10] MEDS ORDERED: ONDANSETRON 4 MG/2 ML VIAL ONE (12:30)
[2017-08-10] MEDS ORDERED: CEFAZOLIN 2 GM/DEXTROSE/100 ML BAG IV ONE ×2 (15:26→23:39)
[2017-08-10] MEDS ORDERED: oxyCODONE IR 5 MG TAB ONE ×2 (15:45→20:39)
[2017-08-10] MEDS ORDERED: APIXABAN 5 MG TAB ONE (20:36)
[2017-08-10] MEDS ORDERED: SENNOSIDES 1 TAB PO ONE (20:36)
[2017-08-10] MEDS ORDERED: FAMOTIDINE 20 MG TAB ONE (20:36)
[2017-08-10] MEDS: SENNOSIDES/DOCUSATE SODIUM TAB PO SCH (20:45)
[2017-08-10] MEDS: oxyCODONE IR 5 MG TAB PO PRN (20:45)
[2017-08-10] MEDS: CYCLOBENZAPRINE 10 MG TAB PO PRN (20:45)
[2017-08-10] MEDS: APIXABAN 5 MG TAB PO SCH (20:45)
[2017-08-10] MEDS: FAMOTIDINE 20 MG TAB PO SCH (20:45)
[2017-08-11] MEDS ORDERED: oxyCODONE IR 5 MG TAB ONE ×3 (00:34→04:07)
[2017-08-11] MEDS ORDERED: ONDANSETRON 4 MG/2 ML VIAL ONE (00:34)
[2017-08-11] MEDS: oxyCODONE IR 5 MG TAB PO PRN ×3 (00:35→09:12)
[2017-08-11] MEDS: ACETAMINOPHEN 325 MG TAB PO SCH ×5 (05:38→17:51)
[2017-08-11] MEDS: FAMOTIDINE 20 MG TAB PO SCH ×3 (05:39→21:29)
[2017-08-11] MEDS: APIXABAN 5 MG TAB PO SCH ×3 (05:40→21:29)
[2017-08-11] MEDS: SENNOSIDES/DOCUSATE SODIUM TAB PO SCH ×3 (05:40→21:29)
[2017-08-11] MEDS: ceFAZolin 2 GM/DEXTROSE 100 ML IV SCH (05:42)
[2017-08-11] MEDS: PANTOPRAZOLE SODIUM 40 MG TAB PO SCH (09:12)
[2017-08-11] MEDS: BISOPROLOL FUMARATE 5 MG TAB PO SCH (09:17)
[2017-08-11] MEDS: TAPENTADOL HCL 50 MG TAB PO SCH ×2 (12:58→17:52)
--- NOTE | 2017-08-11 14:58 | POSTANESTH ---
[facility] Patient Name: FRANCISCO CHISHOLM Rpt#: [id number] Unit Number: [id number] Attending: Karine Nicholas MD Adm Date: 08/10/17 Post Anesthetic Evaluation Cardiovascular Status: Similar to Pre-Op Cond Respiratory Status: Similar to Pre-op Cond. Level of Consciousness/Mental Status: Can Participate in Eval, Mildly Sleepy, Arousable Pain Control: Adequate, Prn Tx Ordered Nausea/Vomiting Control: Adequate, Prn Tx Ordered Complications Possibly Related to Anesthesia: None Noted Yann Steele MD 08/10/17 0942 <Electronically signed by Yann Steele MD> 075 T: LITZY 08/10/17751 CC:
--- NOTE | 2017-08-11 17:16 | PDMN ---
Medical Necessity Medical necessity: est los>2mn s/p TKA, r/t very slow mobility, very stiff knee , requiring cues, gait belt and contact guard assist; comorbid arthritis, heart disease, reflux, hx stroke, blood clots and anemia; per order and PT notes , H&P
[2017-08-12] MEDS: TAPENTADOL HCL 50 MG TAB PO SCH ×4 (01:25→17:22)
[2017-08-12] MEDS: ACETAMINOPHEN 325 MG TAB PO SCH ×4 (01:26→17:22)
[2017-08-12] MEDS: FAMOTIDINE 20 MG TAB PO SCH ×2 (09:19→21:08)
[2017-08-12] MEDS: SENNOSIDES/DOCUSATE SODIUM TAB PO SCH ×2 (09:19→21:08)
[2017-08-12] MEDS: BISOPROLOL FUMARATE 5 MG TAB PO SCH (09:19)
[2017-08-12] MEDS: APIXABAN 5 MG TAB PO SCH ×2 (09:20→21:08)
[2017-08-12] MEDS: PANTOPRAZOLE SODIUM 40 MG TAB PO SCH (09:20)
--- NOTE | 2017-08-12 10:17 | ASMTCMCOM ---
CM Note CM Note Notes: CM note not saved in [employer] yesterday 08/11/17: Pt s/p R TKA. PT/OT rec SNF. Pt requests referral to [facility], referral sent in Allscripts. CM to follow. Date Signed: 08/12/2017 10:17 AM Electronically Signed By:LAZ Palomino
--- NOTE | 2017-08-12 18:30 | SOAPPROG ---
SOAP Progress Note Assessment/Plan: Assessment: Plan: Subjective: states she's doing well and ready for rehab tomorrow dressing s C&D with foot NVI plan for trnasfer tomorrow Objective: Vital Signs Temp Pulse Resp BP Pulse Ox 37.1 C 78 16 111/57 L 95 08/12/17 16:01 08/12/17 16:01 08/12/17 16:01 08/12/17 16:01 08/12/17 16:01 08/11/17 08/12/17 08/13/17 05:59 05:59 05:59 Intake Total 2700 1575 Output Total 300 Balance 2400 1575 ICD10 Worksheet Patient Problems: Problems Problem Status Onset Acute blood loss anemia Acute S/P aortic valve replacement with stentless valve Acute S/P ascending aortic replacement Acute chronic disease mgmt/transitional care Acute Ascending aorta enlargement Chronic CAD (coronary artery disease), [place] coronary artery Chronic Chronic anticoagulation Chronic History of pulmonary embolism Chronic Hx of coronary artery bypass surgery 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
[2017-08-13] MEDS: TAPENTADOL HCL 50 MG TAB PO SCH ×4 (00:36→18:05)
[2017-08-13] MEDS: ACETAMINOPHEN 325 MG TAB PO SCH ×4 (00:59→18:05)
[2017-08-13] MEDS: BISOPROLOL FUMARATE 5 MG TAB PO SCH (08:57)
[2017-08-13] MEDS: SENNOSIDES/DOCUSATE SODIUM TAB PO SCH ×2 (08:57→20:16)
[2017-08-13] MEDS: FAMOTIDINE 20 MG TAB PO SCH ×2 (08:58→20:16)
[2017-08-13] MEDS: PANTOPRAZOLE SODIUM 40 MG TAB PO SCH (08:58)
[2017-08-13] MEDS: oxyCODONE IR 5 MG TAB PO PRN (08:58)
[2017-08-13] MEDS: APIXABAN 5 MG TAB PO SCH ×2 (08:58→20:16)
--- NOTE | 2017-08-13 10:46 | ASMTCMCOM ---
CM Note CM Note Notes: Pt first night at [facility] was observation status. Pt to d/c to [facility] tomorrow. D/c plan of care: [facility]. Date Signed: 08/13/2017 10:45 AM Electronically Signed By:LAZ Palomino
[2017-08-13] MEDS: CYCLOBENZAPRINE 10 MG TAB PO PRN (13:26)
--- NOTE | 2017-08-13 15:57 | SOAPPROG ---
SOAP Progress Note Assessment/Plan: Assessment: Plan: Subjective: states she's ready for trnasfer but con't go until tomorrow dressing removed incision C&D with leg NVI plan for transfer tomorrow Objective: Vital Signs Temp Pulse Resp BP Pulse Ox 37.1 C 77 16 117/52 L 92 08/13/17 15:50 08/13/17 15:50 08/13/17 15:50 08/13/17 15:50 08/13/17 15:50 08/12/17 08/13/17 08/14/17 05:59 05:59 05:59 Intake Total 2700 1775 Output Total 300 Balance 2400 1775 ICD10 Worksheet Patient Problems: Problems Problem Status Onset Acute blood loss anemia Acute S/P aortic valve replacement with stentless valve Acute S/P ascending aortic replacement Acute chronic disease mgmt/transitional care Acute Ascending aorta enlargement Chronic CAD (coronary artery disease), [place] coronary artery Chronic Chronic anticoagulation Chronic History of pulmonary embolism Chronic Hx of coronary artery bypass surgery 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
[2017-08-14] MEDS: ACETAMINOPHEN 325 MG TAB PO SCH ×3 (00:35→11:49)
[2017-08-14] MEDS: TAPENTADOL HCL 50 MG TAB PO SCH ×3 (00:37→11:49)
[2017-08-14 07:34] VITALS: BP 126/65
[2017-08-14] MEDS: BISOPROLOL FUMARATE 5 MG TAB PO SCH (07:38)
[2017-08-14] MEDS: FAMOTIDINE 20 MG TAB PO SCH (07:38)
[2017-08-14] MEDS: PANTOPRAZOLE SODIUM 40 MG TAB PO SCH (07:38)
[2017-08-14] MEDS: APIXABAN 5 MG TAB PO SCH (07:39)
[2017-08-14] MEDS: oxyCODONE IR 5 MG TAB PO PRN (07:43)
[2017-08-14] MEDS: CYCLOBENZAPRINE 10 MG TAB PO PRN (07:43)
[2017-08-14] MEDS: SENNOSIDES/DOCUSATE SODIUM TAB PO SCH (09:25)
--- NOTE | 2017-08-14 10:47 | PDIAF ---
- Diagnosis Diagnosis: Right total knee arthroplasty Code Status: Full Code - Medication Management Discharge Medications: Medications to Continue on Transfer Apixaban [Eliquis] 5 mg PO BID #0 tab 09/09/15 [Last Taken 11/22/16 06:00] Acetaminophen [Tylenol 325mg (*)] 325 mg PO DAILY PRN 11/05/16 [Last Taken 11/21] Bisoprolol Fumarate [Zebeta (*)] 20 mg PO DAILY 11/05/16 [Last Taken 11/24/16 06 :30] Acetaminophen [Tylenol 325mg (*)] 650 mg PO Q6HRS tab 08/12/17 [Last Taken Unknown] Apixaban [Eliquis] 5 mg PO BID tab 08/12/17 [Last Taken Unknown] Bisoprolol Fumarate [Zebeta (*)] 20 mg PO DAILY tab 08/12/17 [Last Taken Unknown] Cyclobenzaprine [Flexeril 10 MG (*)] 10 mg PO Q8HRS PRN tab 08/12/17 [Last Taken Unknown] Diphenoxylate HCl/Atrop Sulf [Lomotil Tab (*)] 1 tab PO QID PRN tab 08/12/17 [ Last Taken Unknown] Famotidine [Pepcid 20 MG (*)] 20 mg PO BID tab 08/12/17 [Last Taken Unknown] Ondansetron Odt [Zofran Odt 4 mg (*)] 4 mg PO Q4HRS PRN tab 08/12/17 [Last Taken Unknown] Pantoprazole Sodium [Protonix 40mg (*)] 40 mg PO DAILY tab 08/12/17 [Last Taken Unknown] Polyethylene Glycol 3350 [Miralax 17 gm (*)] 17 gm PO DAILY PRN pkt 08/12/17 [ Last Taken Unknown] Promethazine HCl [Phenergan Rectal] 25 mg MS Q6HRS PRN suppr 08/12/17 [Last Taken Unknown] Sennosides/Docusate Sodium [Senokot-S] 1 - 2 tab PO BID tab 08/12/17 [Last Taken Unknown] Tapentadol HCl [Nucynta 50 MG (*)] 50 mg PO Q6HRS tab 08/12/17 [Last Taken Unknown] Temazepam [Restoril 15 MG (*)] 15 mg PO HS PRN cap 08/12/17 [Last Taken Unknown ] diphenhydrAMINE [Benadryl 25 MG (*)] 25 mg PO Q4HRS PRN cap 08/12/17 [Last Taken Unknown] oxyCODONE IR [Oxycodone Ir (*)] 5 - 10 mg PO Q3HRS PRN tab 08/12/17 [Last Taken Unknown] Discharge Medications: Refer to the Discharge Home Medication list for PRN reason. - Orders Services needed: Registered Nurse, Physical Therapy, Occupational Therapy Diet Recommendation: no restrictions on diet Diet Texture: Regular Texture Diet Wound Care Instructions: Reinforce dressing as needed Sutures/Brigid Site: Keep clean and dry Additional Instructions: Weight bearing as tolerated on right lower extremity. Continue physical therapy. Total Knee Replacement booklet from [facility] given to pt. - Follow Up Care Current Providers and Referrals: Osiel Jeffries DO [Primary Care Provider] -
--- NOTE | 2017-08-14 15:39 | ASDISCHSUM ---
Discharge Information Plan Status:SNF Medically Cleared to Leave: Discharge Date:08/14/2017 11:53 AM D/C Disposition:Fdc Facility ADT D/C Disposition:Other Rehab, Not [facility] Projected Discharge Date:08/14/2017 11:00 AM Transportation at D/C: Discharge Delay Reason: Follow-Up Date:08/14/2017 11:00 AM Discharge Slot: Final Diagnosis: Placement Information Referral Type:*Halfway/SNF Referral ID:[id number] Provider Name:[facility] Address 1:[address] Address 2: City:[place] Selection Factors: State:[place] Patient Contact Information Contact Name:ALBA Relationship:Daughter Address: Work Phone: City: [place] Phone: [facility] Code: Email: Financial Information Financial Class:Medicare Primary Plan Desc:MEDICARE INPATIENT Primary Plan Number:[id number] Secondary Plan Desc:[facility] Secondary Plan Number:[id number] Assessment Information [facility] CM Progress Note CM Note CM Note Notes: CM note not saved in [employer] yesterday 08/11/17: Pt s/p R TKA. PT/OT rec SNF. Pt requests referral to [facility], referral sent in Allscripts. CM to follow. Date Signed: 08/12/2017 10:17 AM Electronically Signed By:LAZ Palomino [facility] CM Progress Note CM Note CM Note Notes: Pt first night at [facility] was observation status. Pt to d/c to [facility] tomorrow. D/c plan of care: [facility]. Date Signed: 08/13/2017 10:45 AM Electronically Signed By:LAZ Palomino Case Management Discharge Plan Note Case Management Discharge Discharge Order Complete? Answers: Yes Patient to Obtain Answers: Other Notes: [facility] Medications Transportation Arranged Answers: Other Notes: rajesh sigala Faxed Final Orders Answers: Yes Agency/Facility Transfer Answers: Yes Report Printed & Faxed to Receiving Agency Discharge Comments Notes: Pt will dc today to [facility]. Discussed w/ROXANA irizarry call report. Pt ready for dc. Orders/info sent through [employer]. Date Signed: 08/14/2017 11:41 AM Electronically Signed By:Ruth Hurt RN Intervention Information Intervention Type:*IM-Signed Date of Service:08/13/2017 03:28 PM Patient Type:Inpatient Staff Member:Desi Castro Hours: Discipline: Severity: Comment:
--- NOTE | 2017-08-31 14:27 | GDS ---
[f rep st] DISCHARGE SUMMARY CURRENT COMPLAINT: Right knee pain. HISTORY OF PRESENT ILLNESS: The patient is a 67-year-old female with a long history of right knee pa in, worsening with use and with time, with increasing valgus deformity through the knee. X-ray exam r eveals [id number] osteoarthritic changes. She wishes to have surgery in order to resolve the proble m. HOSPITAL COURSE: Patient was brought to the operating room on the day of admission, where she underw ent a right total knee arthroplasty. Postoperatively, she progressed steadily with physical therapy. Once her pain was able to be adequately under control and she was medically stable, she was able to b e transferred to a rehabilitation facility on 08/15/2017, with instructions to continue with her phys ical therapy exercises and return to the office for further evaluation. DISCHARGE DIAGNOSIS: Right knee osteoarthritis. /[id number]/MODL
== END 2017-08-14 11:53 | DRG 470 ==
LOC: F3N 05:30
PROVIDERS: ADMIT Orthopaedic Surgery; ATTEND Orthopaedic Surgery
PROC: 0SRC0JZ Replacement of Right Knee Joint with Synthetic Substitute, Open Approach (ICD-10-PCS; principal; 2017-08-10 07:15)
DX: M17.11 Unilateral primary osteoarthritis, right knee (principal); Z96.652 Presence of left artificial knee joint; Z96.643 Presence of artificial hip joint, bilateral; Z95.1 Presence of aortocoronary bypass graft; Z95.4 Presence of other heart-valve replacement
CPT/HCPCS: 97110-GP; 97116-GP; 97161-GP; 97165-GO; 97530-GP; 97535-GO; G8978-GP-CJ; G8979-GP-CI; G8987-GO-CK; G8988-GO-CJ; J0171; J0690; J2250; J2270; J2370; J2405; J2704; J2795